=== PATIENT | female | born 1965 | race Caucasian/White ===

== ENCOUNTER → 2017-05-29 | Outpatient (CLI) | payer BC ==
--- NOTE | 2017-05-29 11:40 | XR ---
Cervical spine HISTORY: Radiculopathy, neck pain radiating to right side, M 54.12 5 views of the cervical spine No comparisons There is reversal the normal cervical lordosis. Cervical vertebral bodies show preserved height, alig nment, and bone mineralization. Disc spaces and prevertebral soft tissues are normal. Spondylosis pre sent at C7, some mild loss of disc height present at C5-6. No significant foraminal encroachment. IMPRESSION: Mild degenerative disc disease. Loss of lordosis may be due to muscle spasm. Consider cer vical MRI.
== END | disposition home or self-care (01) ==
LOC: RADXRMAIN 10:55
PROVIDERS: ATTEND Family Medicine
DX: M50.122 Cervical disc disorder at C5-C6 level with radiculopathy (principal)
CPT/HCPCS: 72050

== ENCOUNTER → 2018-08-07 | Outpatient (CLI) | payer BC ==
--- NOTE | 2018-08-07 13:24 | P.STRESS ---
- Stress Test Note Stress Test Results/Findings: Exam Performed: stress test Exam Date: 08/07/18 Reason for Exam: CHEST PAIN Height: 5 ft 2 in Weight: 78.018 kg Protocol: ADE Stage: 3 Duration of Exercise: 9:00 Resting Heart Rate: 77 Resting Blood Pressure: 116/64 Maximum Achieved Heart Rate: 124 Maximum Achieved Blood Pressure: 209/70 85% PMHR: 143 100% PMHR: 168 METS: 7.4 Technologist Comment: Stress Test Results/Findings: This is a 52-year-old female with history of diabetes. Family history of ischemic heart disease being evaluated for for symptoms of upper chest pain and shortness of breath. Stress data: Baseline EKG showed sinus rhythm with normal NC interval and QRS duration. Patient awoke on the Ade protocol for about 9 minutes achieving a maximal to the 124 with blood pressure of 209/70. EKGs taken during and after exercise showed mild J-point depression with upsloping ST segments in the inferolateral leads, which resolved quickly in the post exercise period. Patient complained him back chest pain or shortness of breath. New Final impression: #1. Negative stress test #2 would excise capacity #3. Patient complained of some chest pain and shortness of breath and associated with any significant EKG of mollities. #4. No arrhythmias detected
--- NOTE | 2018-08-08 16:03 | EST ---
Stress Test Results/Findings: Exam Performed: stress test Exam Date: 08/07/18 Reason for Exam: CHEST PAIN Height: 5 ft 2 in Weight: 78.018 kg Protocol: ADE Stage: 3 Duration of Exercise: 9:00 Resting Heart Rate: 77 Resting Blood Pressure: 116/64 Maximum Achieved Heart Rate: 124 Maximum Achieved Blood Pressure: 209/70 85% PMHR: 143 100% PMHR: 168 METS: 7.4 Technologist Comment: Stress Test Results/Findings: This is a 52-year-old female with history of diabetes. Family history of ischemic heart disease being evaluated for for symptoms of upper chest pain and shortness of breath. Stress data: Baseline EKG showed sinus rhythm with normal CT interval and QRS duration. Patient awoke on the Ade protocol for about 9 minutes achieving a maximal to the 124 with blood pressure of 209/70. EKGs taken during and after exercise showed mild J-point depression with upsloping ST segments in the inferolateral leads, which resolved quickly in the post exercise period. Patient complained him back chest pain or shortness of breath. New Final impression: #1. Negative stress test #2 would excise capacity #3. Patient complained of some chest pain and shortness of breath and associated with any significant EKG of mollities. #4. No arrhythmias detected MTDD
== END | disposition home or self-care (01) ==
LOC: RADNMMAIN 08:43
PROVIDERS: ATTEND Family Medicine
DX: R07.89 Other chest pain (principal); R06.02 Shortness of breath; R94.31 Abnormal electrocardiogram [ECG] [EKG]
CPT/HCPCS: 93017

== ENCOUNTER → 2018-12-09 | Outpatient (CLI) | payer BC ==
--- NOTE | 2018-12-09 10:58 | XR ---
EXAM TYPE: LUMBAR SPINE X RAY SERIES COMPARISON: NONE HISTORY: Low back pain TECHNIQUE: 4 views are submitted. FINDINGS: Alignment is anatomic. The pedicles are intact. The transverse processes are intact. There is no s pondylolysis or spondylolisthesis. Vascular calcifications are seen enters hypertrophic spurring ant eriorly. Multilevel facet arthropathy. IMPRESSION: 1. Multilevel facet arthropathy correlate with MRI as clinically warranted..
--- NOTE | 2018-12-09 11:40 | XR ---
EXAMINATION TYPE: XR shoulder complete RT DATE OF EXAM: 12/09/2018 COMPARISON: NONE HISTORY: Pain TECHNIQUE: Three views are submitted. FINDINGS: The osseous structures are intact. There is no acute fracture or dislocation. Arthropathy of the AC joint. IMPRESSION: 1. AC joint arthropathy if there is concern for rotator cuff injury correlate with MRI.
== END ==
LOC: RADXRMAIN 10:25
PROVIDERS: ATTEND Family Medicine
DX: M46.96 Unspecified inflammatory spondylopathy, lumbar region (principal); M19.011 Primary osteoarthritis, right shoulder
CPT/HCPCS: 72100

== ENCOUNTER 2019-04-30 13:42 | Emergency (ER) | payer BC ==
[2019-04-30] MEDS ORDERED: SODIUM CHLORIDE 0.9% 1,000 ML IV STA (15:32)
[2019-04-30 15:56] LABS: Basophils % (A) 0 %; Eosinophils # (A) 0.2 k/uL (0-0.7); Eosinophils % (A) 2 %; HCT 39.9 % (34.0-46.0); HGB 13.2 gm/dL (11.4-16.0); Lymphocytes # (A) 3.3 k/uL (1.0-4.8); Lymphocytes % (A) 32 %; MCH 28.3 pg (25.0-35.0); MCV 85.8 fL (80.0-100.0); Mean Platelet Volume 8.4; Monocytes # (A) 0.5 k/uL (0-1.0); Monocytes % (A) 4 %; Neutrophils # (A) 6.3 k/uL (1.3-7.7); Neutrophils % (A) 60 %; Platelet Count 251 k/uL (150-450); RBC 4.65 m/uL (3.80-5.40); RDW 13.3 % (11.5-15.5); WBC 10.4 k/uL (3.8-10.6)
[2019-04-30 16:06] LABS: ALT 27 U/L (9-52); AST 24 U/L (14-36); African American GFR (CKD) >90 (>60 ml/min/1.73 sqM); Albumin 3.8 g/dL (3.5-5.0); Alkaline Phosphatase 117 U/L (38-126); Anion Gap 9 mmol/L; Blood Urea Nitrogen 12 mg/dL (7-17); Calcium 9.4 mg/dL (8.4-10.2); Carbon Dioxide 23 mmol/L (22-30); Chloride 103 mmol/L (98-107); Glucose 337 mg/dL (74-99); Potassium 4.4 mmol/L (3.5-5.1); Sodium 135 mmol/L (137-145); Total Bilirubin 0.4 mg/dL (0.2-1.3); Total Protein 6.3 g/dL (6.3-8.2)
[2019-04-30 16:24] LABS: Amorphous Sediment,Urine Rare /hpf; Appearance,Urine Clear (Clear); Bacteria,Urine Rare /hpf; Bilirubin,Urine Negative (Negative); Blood,Urine Negative (Negative); Color,Urine Yellow; Glucose,Urine (UA) 4+ (Negative); Ketones,Urine Negative (Negative); Leukocyte Esterase,Urine Trace (Negative); Mucus,Urine Rare /hpf; Nitrite,Urine Negative (Negative); PH, Urine 5.5 (5.0-8.0); Protein,Urine Negative (Negative); RBC,Urine 1 /hpf (0-5); Squamous Epithelial Cell,Urine 4 /hpf (0-4); Urobilinogen,Urine <2.0 mg/dL (<2.0)
[2019-04-30 16:47] VITALS: RESP 16
--- NOTE | 2019-04-30 16:50 | ED ---
General Adult HPI - General Chief complaint: Recheck/Abnormal Lab/Rx Stated complaint: High Sugar >400 Time Seen by Provider: 04/30/19 15:09 Source: patient Mode of arrival: ambulatory Limitations: no limitations - History of Present Illness Initial comments: Patient is a 53-year-old female presenting to the emergency Department with complaints of high blood sugar x 1 week. Patient states she has been unable to afford her long acting insulin toujeo for a few months now. States she's been trying to control her sugar with her short acting insulin. Patient works at night and has been falling asleep at work and not having much of an appetite. Patient denies nausea, vomiting, abdominal pain. Patient has no other complaints at this time. - Related Data Home Medications Medication Instructions Recorded Confirmed Aspirin EC [Ecotrin Low Dose] 81 mg PO DAILY 04/30/19 04/30/19 Cholecalciferol [Vitamin D3 (25 1,000 unit PO DAILY 04/30/19 04/30/19 Mcg = 1000 Iu)] FLUoxetine HCL [PROzac] 10 mg PO DAILY 04/30/19 04/30/19 FLUoxetine HCL [PROzac] 40 mg PO DAILY 04/30/19 04/30/19 Insulin Glargine,Hum.rec.anlog 1 dose SQ DIRECTED 04/30/19 04/30/19 [Toujeo Solostar] Insulin Lispro [humaLOG Kwikpen] See Protocol SQ AC-TID 04/30/19 04/30/19 Loratadine [Claritin] 10 mg PO DAILY 04/30/19 04/30/19 Magnesium Gluconate [Magonate] 500 mg PO DAILY 04/30/19 04/30/19 Multivitamins, Thera [Multivitamin 1 tab PO DAILY 04/30/19 04/30/19 (formulary)] Omeprazole 20 mg PO DAILY 04/30/19 04/30/19 busPIRone HCL [Buspar] 7.5 mg PO BID 04/30/19 04/30/19 Allergies Allergy/AdvReac Type Severity Reaction Status Date / Time No Known Allergies Allergy Verified 04/30/19 16:07 Review of Systems ROS Statement: Those systems with pertinent positive or pertinent negative responses have been documented in the HPI. ROS Other: All systems not noted in ROS Statement are negative. Past Medical History Past Medical History: Diabetes Mellitus, Hyperlipidemia History of Any Multi-Drug Resistant Organisms: None Reported Past Surgical History: Section, Cholecystectomy, Hysterectomy Additional Past Surgical History / Comment(s): ectopic Past Psychological History: Anxiety, Depression Smoking Status: Current every day smoker Past Alcohol Use History: None Reported Past Drug Use History: None Reported - Past Family History Father Family Medical History: COPD, Diabetes Mellitus, Renal Disease (SLE) Mother Family Medical History: Cancer (:), Diabetes Mellitus Brother(s) Family Medical History: Hypertension Sister(s) Family Medical History: Hypertension Daughter(s) Family Medical History: No Reported History Son(s) Family Medical History: Asthma General Exam - General Exam Comments Initial Comments: GENERAL: Well-appearing, well-nourished and in no acute distress. HEAD: Atraumatic, normocephalic. EYES: Pupils equal round and reactive to light, extraocular movements intact, sclera anicteric, conjunctiva are normal. ENT: TMs normal, nares patent, oropharynx clear without exudates. Moist mucous membranes. NECK: Normal range of motion, supple without lymphadenopathy or JVD. LUNGS: Breath sounds clear to auscultation bilaterally and equal. No wheezes ra les or rhonchi. HEART: Regular rate and rhythm without murmurs, rubs or gallops. ABDOMEN: Soft, nontender, normoactive bowel sounds. No guarding, no rebound. No masses appreciated. : Deferred EXTREMITIES: Normal range of motion, no pitting or edema. No clubbing or cyanosis. NEUROLOGICAL: Cranial nerves II through XII grossly intact. Normal speech, normal gait. PSYCH: Normal mood, normal affect. SKIN: Warm, Dry, normal turgor, no rashes or lesions noted. Limitations: no limitations Course Vital Signs 04/30/19 04/30/19 13:43 16:46 Temperature 98.1 F 98.8 F Pulse Rate 87 68 Respiratory 18 16 Rate Blood Pressure 171/81 144/74 O2 Sat by Pulse 98 97 Oximetry Medical Decision Making - Medical Decision Making Patient is a 53-year-old female complaining of high glucose levels for the last week. Patient states she has been unable to afford her long-acting insulin. Patient reports falling asleep at work as she works nights. No other complaints at this time. Exam is normal. CBC, CMP, UA are within normal limits except for glucose of 337 and 4+ glucose in the urine. Patient was given fluids and insulin. Patient was counseled on the importance of long-acting insulin. Patient states she needs to find a new PCP. Patient was given a referral for new endocrine and will follow-up soon. Case is discussed with Dr. Buchanan. Return parameters were discussed. - Lab Data Result diagrams: 04/30/19 15:40 04/30/19 15:40 Lab Results 04/30/19 04/30/19 04/30/19 Range/Units 15:40 15:40 16:00 WBC 10.4 (3.8-10.6) k/uL RBC 4.65 (3.80-5.40) m/uL Hgb 13.2 (11.4-16.0) gm/dL Hct 39.9 (34.0-46.0) % MCV 85.8 (80.0-100.0) fL MCH 28.3 (25.0-35.0) pg MCHC 33.0 (31.0-37.0) g/dL RDW 13.3 (11.5-15.5) % Plt Count 251 (150-450) k/uL Neutrophils % 60 % Lymphocytes % 32 % Monocytes % 4 % Eosinophils % 2 % Basophils % 0 % Neutrophils # 6.3 (1.3-7.7) k/uL Lymphocytes # 3.3 (1.0-4.8) k/uL Monocytes # 0.5 (0-1.0) k/uL Eosinophils # 0.2 (0-0.7) k/uL Basophils # 0.0 (0-0.2) k/uL Sodium 135 L (137-145) mmol/L Potassium 4.4 (3.5-5.1) mmol/L Chloride 103 (98-107) mmol/L Carbon Dioxide 23 (22-30) mmol/L Anion Gap 9 mmol/L BUN 12 (7-17) mg/dL Creatinine 0.56 (0.52-1.04) mg/dL Est GFR (CKD-EPI)AfAm >90 (>60 ml/min/1.73 sqM) Est GFR (CKD-EPI)NonAf >90 (>60 ml/min/1.73 sqM) Glucose 337 H (74-99) mg/dL Calcium 9.4 (8.4-10.2) mg/dL Total Bilirubin 0.4 (0.2-1.3) mg/dL AST 24 (14-36) U/L ALT 27 (9-52) U/L Alkaline Phosphatase 117 (38-126) U/L Total Protein 6.3 (6.3-8.2) g/dL Albumin 3.8 (3.5-5.0) g/dL Urine Color Yellow Urine Appearance Clear (Clear) Urine pH 5.5 (5.0-8.0) Ur Specific Ringle 1.030 (1.001-1.035) Urine Protein Negative (Negative) Urine Glucose (UA) 4+ H (Negative) Urine Ketones Negative (Negative) Urine Blood Negative (Negative) Urine Nitrite Negative (Negative) Urine Bilirubin Negative (Negative) Urine Urobilinogen <2.0 (<2.0) mg/dL Ur Leukocyte Esterase Trace H (Negative) Urine RBC 1 (0-5) /hpf Urine WBC 1 (0-5) /hpf Ur Squamous Epith Cells 4 (0-4) /hpf Amorphous Sediment Rare H (None) /hpf Urine Bacteria Rare H (None) /hpf Urine Mucus Rare H (None) /hpf Disposition Clinical Impression: Hyperglycemia due to type 2 diabetes mellitus Disposition: HOME SELF-CARE Condition: Stable Instructions (If sedation given, give patient instructions): Diabetic Hyperglycemia (ED) Additional Instructions: Please return to the Emergency Department if symptoms worsen or any other concerns. Follow-up with endocrine in the next one to 3 days. Is patient prescribed a controlled substance at d/c from ED?: No Referrals: Cricket Hayes DO [Primary Care Provider] - 1-2 days Diane Hernandez MD [STAFF PHYSICIAN] - 1-2 days
[2019-04-30] MEDS ORDERED: INSULIN DETEMIR (LEVEMIR) 100 UNIT/ML SYR SQ STA (18:02)
[2019-04-30 18:30] VITALS: BP 138/74; PULSE 67; TEMP 97.5
== END 2019-04-30 18:35 | disposition home or self-care (01) ==
LOC: EC 13:42
DX: E11.65 Type 2 diabetes mellitus with hyperglycemia (principal); F32.9 Major depressive disorder, single episode, unspecified; F41.9 Anxiety disorder, unspecified; F17.200 Nicotine dependence, unspecified, uncomplicated; Z79.4 Long term (current) use of insulin; Z79.82 Long term (current) use of aspirin; Z79.899 Other long term (current) drug therapy; Z83.3 Family history of diabetes mellitus
CPT/HCPCS: 36415; 80053; 81001; 85025; 96360; 96361; 99284

== ENCOUNTER → 2019-05-05 | Outpatient (CLI) | payer BC ==
[2019-05-05 16:43] LABS: African American GFR (CKD) 84.6 (60.0-200.0); Albumin 3.9 g/dL (3.80-4.90); Albumin/Globulin Ratio 1.77 (1.60-3.17); Anion Gap 9.5 mmol/L (4.00-12.00); BUN/Creat Ratio 12.22 Ratio (12.00-20.00); Calcium 9.1 mg/dL (8.7-10.3); Carbon Dioxide 24.5 mmol/L (21.6-31.8); Globulin 2.2 g/dL (1.6-3.3); Potassium 4.4 mmol/L (3.5-5.5); Total Bilirubin 0.2 mg/dL (0.3-1.2); Total Protein 6.1 g/dL (6.2-8.2)
== END | disposition home or self-care (01) ==
LOC: LABWHC1 10:51
PROVIDERS: ATTEND Internal Medicine Endocrinology, Diabetes & Metabolism
DX: E11.65 Type 2 diabetes mellitus with hyperglycemia (principal)
CPT/HCPCS: 36415; 80053; 84681

== ENCOUNTER → 2019-10-29 | Outpatient (CLI) | payer BC ==
--- NOTE | 2019-11-02 08:52 | MM ---
Reason for exam: screening (asymptomatic). Last mammogram was performed 5 years and 7 months ago. History: Patient has history of other cancer at age 30. Family history of breast cancer in cousin at age 40. Benign core biopsy of the left breast. Physical Findings: A clinical breast exam by your physician is recommended on an annual basis and results should be correlated with mammographic findings. MG Screening Mammo w CAD Bilateral CC and MLO view(s) were taken. Prior study comparison: April 06, 2014, bilateral MG screening mammo w CAD. There are scattered fibroglandular densities. Focal asymmetry in the right breast. No significant changes when compared with prior studies. ASSESSMENT: Benign, BI-RAD 2 RECOMMENDATION: Routine screening mammogram of both breasts in 1 year.
== END | disposition home or self-care (01) ==
LOC: RADMAMWWP 13:24
PROVIDERS: ATTEND Family Medicine
DX: Z12.31 Encounter for screening mammogram for malignant neoplasm of breast (principal)
CPT/HCPCS: 77067

== ENCOUNTER → 2020-04-22 | Outpatient (CLI) | payer BC | END | disposition home or self-care (01) | LOC: LABWHC1 16:26 | PROVIDERS: ATTEND Surgery Plastic and Reconstructive Surgery | DX: Z53.9 Procedure and treatment not carried out, unspecified reason (principal) ==

== ENCOUNTER 2020-05-13 14:48 | Day surgery (SDC) | payer BC ==
[2020-05-12 10:03] VITALS: BMI 30.4
[~2020-05-13 14:48] MED LIST: DEXAMETHASONE SOD PHOSPHATE 10 MG/ML 1 ML VIAL IV ONE; HYDROmorphone 0.5 MG/0.5 ML SYRINGE IVP PRN; LIDOCAINE 1% (10MG/ML) FOR IV START INTRADERMA PRN; ONDANSETRON 4 MG/2 ML VIAL IVP ONE; ONDANSETRON 4 MG/2 ML VIAL IVP PRN
[2020-05-13 15:06] VITALS: TEMP 96.2
[2020-05-13] MEDS: LACTATED RINGERS 1,000 ML IV SCH ×3 (15:12→15:34)
[2020-05-13 15:13] LABS: Glucose,Whole Blood 185 mg/dL (75-99)
[2020-05-13] MEDS ORDERED: ONDANSETRON 4 MG/2 ML VIAL ONE (15:15)
[2020-05-13] MEDS ORDERED: SCOPOLAMINE 1.5MG/72HR PATCH TRANSDERM ONE (15:19)
[2020-05-13] MEDS ORDERED: fentaNYL (PF) 50 MCG/ML 2 ML AMP ONE (15:34)
[2020-05-13] MEDS ORDERED: SUCCINYLCHOLINE CHLORIDE 100 MG/5 ML SYR IV ONE (15:34)
[2020-05-13] MEDS ORDERED: PROPOFOL 10 MG/ML 20 ML VIAL IV ONE (15:34)
[2020-05-13] MEDS ORDERED: MIDAZOLAM 2 MG/2 ML VIAL ONE (15:34)
[2020-05-13] MEDS ORDERED: LIDOCAINE 1%-EPI 1:100,000 20 ML VIAL SQ ONE ×2 (16:32)
[2020-05-13 17:10] LABS: Glucose,Whole Blood 233 mg/dL (75-99)
[2020-05-13] MEDS ORDERED: LACTATED RINGERS 1,000 ML IV ONE (17:11)
[2020-05-13] MEDS ORDERED: INSULIN ASPART (NovoLOG) 100 UNIT/ML VIAL SQ ONE (17:18)
[2020-05-13 17:29] VITALS: RESP 18
[2020-05-13 17:44] VITALS: BP 132/78; PULSE 67
--- NOTE | 2020-05-15 10:49 | P.OP ---
Date of Procedure: 05/13/20 Preoperative Diagnosis: 1. Right carpal tunnel syndrome 2. Right middle trigger finger Postoperative Diagnosis: 1. Right carpal tunnel syndrome 2. Right middle trigger finger Procedure(s) Performed: 1. Right endoscopic carpal tunnel release 2. Right middle trigger finger release Anesthesia: MAYELAA, other Surgeon: Tomas Jeronimo Estimated Blood Loss (ml): 5 Condition: stable Disposition: PACU Indications for Procedure: The patient is a 54-year-old female who was diagnosed with right carpal tunnel syndrome and a right middle trigger finger. Treatment options (and associated risks and benefits) were discussed in the office; the patient elected to undergo surgical release. In preop, additional questions were addressed and the patient wished to proceed with surgery. Consent forms were signed. The operative sites were confirmed and marked in preop. Description of Procedure: The patient was positioned supine with the right arm on a hand table. A tourniquet was applied. Anesthesia was administered uneventfully. The right upper extremity was then prepped and draped in standard, sterile fashion. A time-out was performed, confirming patient identifiers, the operative side, sites and procedures to be performed: all team members expressed agreement. The limb was exsanguinated with an Esmarch and the tourniquet was inflated. Loupe magnification was used throughout the case for optimum visualization. The trigger finger was approached first. A longitudinal incision was marked over the middle finger A-1 arian, extending obliquely along the distal palmar crease in a hockey-stick fashion. Blunt, spreading dissection proceeded down to the flexor sheath, taking care to protect the adjacent neurovascular bundles. The subcutaneous tissues along the flexor sheath were dense and adherent. These were bluntly divided. The A-1 arian was identified and sharply incised longitudinally. The sheath appeared stenotic distally and the proximal portion of the A2 arian was released (<25%). Synovial adhesions proximal and distal to the arian were released with scissors. The flexor tendons were gently elevated out of the wound with Ragnell retractors an audible and palpable release of proximal adhesions in the palm was noted, followed by full passive flexion of the digit. The tendons were released and allowed to retract back to their normal anatomic positions. Passive motion of the digit demonstrated smooth tendon gliding without appreciable catching, triggering or focal restriction. The wound was covered and attention was turned to the carpal tunnel. A 1.5 cm transverse incision was marked proximal to the wrist flexion crease, in line with the radial border of the ring finger. The skin was sharply incised and the subcutaneous tissues were bluntly spread. The volar carpal fascia was identified and sharply incised in line with the path of the nerve. The median nerve was visualized below. A synovial elevator was inserted and used to release adhesions on the underside of the transverse carpal ligament. The washboard effect was palpable. A dilator was inserted to sound and enlarge the carpal tunnel. The hamate hook was palpable ulnarly. The introitus to the tunnel was remarkably narrow. The small side-specific guide and camera were selected, but even this felt somewhat snug when inserted. The transverse carpal ligament was clearly visualized above. The distal edge of the ligament was identified and palpated with a probe. A rasp was used to clear the remaining synovial adhesions. The endoscopic blade was inserted and the distal half of the ligament was sharply incised. Residual distal transverse fibers were released and then the proximal portion of the ligament was divided. Upon release, the ligament leaflets sprang apart widely, each no longer visible within the field of view. The camera and guide were removed. Proximal to the incision, the volar carpal/antebrachial fascia was noted to be fairly thick, causing additional compression, and was released with scissors under direct visualization. The tourniquet was released after 16 minutes at 150 mmHg. There was a moderate amount of diffuse slow bleeding from numerous sites (even the edges of the A-1 arian); manual pressure on the wounds afforded acceptable hemostasis. The wounds were thoroughly irrigated with normal saline. The incisions were closed with interrupted 4-0 Nylon sutures. Local anesthetic with epinephrine was in jected for adjunct postoperative pain control and hemostasis. A soft, sterile dressing was applied. All sponge, needle and instrument counts were correct at the end of the case. The patient tolerated the procedure well and was transferred to recovery in stable condition.
== END 2020-05-13 17:56 | disposition home or self-care (01) ==
LOC: OR 14:48
PROVIDERS: ATTEND Orthopaedic Surgery
DX: G56.03 Carpal tunnel syndrome, bilateral upper limbs (principal); M65.331 Trigger finger, right middle finger; E78.5 Hyperlipidemia, unspecified; F32.9 Major depressive disorder, single episode, unspecified; E11.9 Type 2 diabetes mellitus without complications; K21.9 Gastro-esophageal reflux disease without esophagitis; Z87.11 Personal history of peptic ulcer disease; M19.90 Unspecified osteoarthritis, unspecified site; G43.919 Migraine, unspecified, intractable, without status migrainosus; R45.0 Nervousness; R26.81 Unsteadiness on feet; Z90.49 Acquired absence of other specified parts of digestive tract; Z90.710 Acquired absence of both cervix and uterus; Z98.890 Other specified postprocedural states; Z83.3 Family history of diabetes mellitus; Z97.3 Presence of spectacles and contact lenses; Z82.49 Family history of ischemic heart disease and other diseases of the circulatory system; F17.210 Nicotine dependence, cigarettes, uncomplicated; Z97.2 Presence of dental prosthetic device (complete) (partial); Z79.82 Long term (current) use of aspirin; Z79.899 Other long term (current) drug therapy; Z79.4 Long term (current) use of insulin
CPT/HCPCS: 29848; 26055; J2250; J1100; J2405; J3010; J0330; J2704

== ENCOUNTER → 2022-10-12 | Outpatient (CLI) | payer BC ==
[2022-10-12 23:45] LABS: African American GFR (CKD) 111.5 (60.0-200.0); Albumin 3.8 g/dL (3.8-4.9); Albumin/Globulin Ratio 1.81 (1.60-3.17); Anion Gap 10.6 mmol/L (10.00-18.00); BUN/Creat Ratio 10.86 Ratio (12.00-20.00); Blood Urea Nitrogen 7.6 mg/dL (9.0-27.0); Calcium 9.1 mg/dL (8.7-10.3); Carbon Dioxide 24.4 mmol/L (20.0-27.5); Globulin 2.1 g/dL (1.6-3.3); Non-African American GFR(CKD) 96.2 (60.0-200.0); Potassium 4.3 mmol/L (3.5-5.5); Total Bilirubin 0.3 mg/dL (0.30-1.20); Total Protein 5.9 g/dL (6.2-8.2)
[2022-10-12 23:50] LABS: C-Peptide 1.73 ng/mL (0.81-3.85)
== END | disposition home or self-care (01) ==
LOC: LABWHC1 13:32
PROVIDERS: ATTEND Internal Medicine Endocrinology, Diabetes & Metabolism
DX: E11.65 Type 2 diabetes mellitus with hyperglycemia (principal)
CPT/HCPCS: 36415; 80053; 84681

== ENCOUNTER → 2023-10-01 | Outpatient (CLI) | payer BC ==
--- NOTE | 2023-10-02 20:06 | MM ---
Reason for Exam: Screening (asymptomatic). Last mammogram was performed 3 year(s) and 11 month(s) ago. Patient History: Menarche at age 13. First Full-Term at age 19. Left ovary removed at age 48. Right ovary removed at age 48. Hysterectomy at age 48. Postmenopausal. Other cancer, age 30. Benign Core Biopsy on the left side. Maternal cousin had breast cancer, age 40. Risk Values: Shanice 5 year model risk: 1.1%. NCI Lifetime model risk: 6.6%. Prior Study Comparison: 04/06/2014 Bilateral Screening Mammogram, [facility]. 10/29/2019 Bilateral Screening Mammogram, [facility]. Tissue Density: There are scattered fibroglandular densities. Findings: Analyzed By CAD. Unchanged global asymmetry right upper outer quadrant. Benign bilateral dermal calcifications medially. There is no suspicious group of microcalcifications or new suspicious mass in either breast. Overall Assessment: Benign, BI-RAD 2 Management: Screening Mammogram of both breasts in 1 year. . Patient should continue monthly self-breast exams. A clinical breast exam by your physician is recommended on an annual basis. This exam should not preclude additional follow-up of suspicious palpable abnormalities. Note on Shanice scores and lifetime risk: 1. A Shanice score greater than 3% is considered moderate risk. If this is the case, consider specialist referral to assess eligibility for a risk reducing agent. 2. If overall lifetime risk for the development of breast cancer is 20% or higher, the patient may qualify for future screening with alternating mammogram and breast MRI. Electronically signed and approved by: Juan Jose Bai M.D. Radiologist
== END | disposition home or self-care (01) ==
LOC: RADMAMWWP 12:45
PROVIDERS: ATTEND Family Medicine
DX: Z12.31 Encounter for screening mammogram for malignant neoplasm of breast (principal); Z78.0 Asymptomatic menopausal state; Z80.3 Family history of malignant neoplasm of breast
CPT/HCPCS: 77063; 77067

== ENCOUNTER → 2024-07-18 | Outpatient (CLI) | payer BC ==
[2024-07-18 13:48] LABS: ALT 15 U/L (8-44); AST 14 U/L (13-35); Albumin/Globulin Ratio 1.82 Ratio (1.60-3.17); Alkaline Phosphatase 113 U/L (41-126); BUN/Creat Ratio 12.82 Ratio (12.00-20.00); Blood Urea Nitrogen 14.1 mg/dL (9.0-27.0); Calcium 9.3 mg/dL (8.7-10.3); Carbon Dioxide 24.9 mmol/L (21.6-31.8); Chloride 102 mmol/L (96-109); Chol/HDL Ratio 4.89 Ratio; Globulin 2.2 g/dL (1.6-3.3); Glucose 167 mg/dL (70-110); Potassium 4.3 mmol/L (3.5-5.5); Sodium 138 mmol/L (135-145); Total Bilirubin 0.3 mg/dL (0.3-1.2); Total Protein 6.2 g/dL (6.2-8.2)
== END | disposition home or self-care (01) ==
LOC: LABWHC1 08:38
PROVIDERS: ATTEND Internal Medicine Endocrinology, Diabetes & Metabolism
DX: E11.65 Type 2 diabetes mellitus with hyperglycemia (principal)
CPT/HCPCS: 36415; 80053; 80061; 83036; 83721; 84443

== ENCOUNTER → 2024-09-29 | Outpatient (CLI) | payer BC ==
--- NOTE | 2024-09-29 10:36 | CTL ---
EXAMINATION TYPE: CT Low Dose Lung DATE OF EXAM ORDERED: 09/29/2024 COMPARISON: Chest radiograph 09/29/2015 CLINICAL INDICATION: Female, 59 years old with history of Z12.2 ENCNTR SCREEN FOR MALIGNANT NEOPLASM OF RESP; [facility], Encounter for malignant neoplasm AND Nicotine dependence, cigarettes, uncomplicated (cu rrent smoker), Lung cancer screening, History of Smoking/tobacco use. TECHNIQUE: Low dose computed tomography scan was performed through the chest at 1 mm thick sections a nd reconstructed images in multiple planes at 1 mm and [address] DLP: 127.[address] CTDI: 3.60 mGy Automated exposure control for dose reduction was used. CT DIAGNOSTIC QUALITY: Satisfactory FINDINGS: Nodules: Right middle lobe 2.7 mm calcified granuloma. Anterior right lower lobe peripheral 3.6 mm pulmonary nodule (series 6, image 36). Right lower lobe 1.8 mm pulmonary nodule (series 6, image 43). Posterior left upper lobe 5.6 mm groundglass pulmonary nodule (series 6, image 15). LUNGS: COPD: Severity: None Fibrosis: Severity: None Lymph nodes: None Other findings: None RIGHT PLEURAL SPACE: Effusion: None Calcification: None Thickening: None Pneumothorax: None LEFT PLEURAL SPACE: Effusion: None Calcification: None Thickening: None Pneumothorax: None HEART: Heart Size: Normal Coronary Calcification: Small Pericardial Effusion: Trace OTHER FINDINGS: Upper abdomen: Gallbladder is surgically absent. Bony thorax: Sclerotic focus within the left lateral seventh rib which may represent a benign bone is land. No erosive changes. Supraclavicular region: Right thyroid lobe 1.3 cm hypodense nodule. Other: None IMPRESSION: Few pulmonary nodules measuring less than [address] LUNG RAD AND CT CHEST RECOMMENDATION: Lung-Rad 2 Benign Appearance or Behavior: Continue annual sc reening with LDCT in 12 months. S Modifier (other clinically significant findings): None [facility], , 09/29/2024 10:34 AM
== END | disposition home or self-care (01) ==
LOC: RADCTMAIN 09:45
PROVIDERS: ATTEND Family Medicine
DX: Z12.2 Encounter for screening for malignant neoplasm of respiratory organs (principal); F17.210 Nicotine dependence, cigarettes, uncomplicated; R91.8 Other nonspecific abnormal finding of lung field
CPT/HCPCS: 71271

== ENCOUNTER → 2025-01-26 | Outpatient (CLI) | payer BC ==
--- NOTE | 2025-01-26 10:25 | CT ---
EXAMINATION TYPE: CT brain wo con DATE OF EXAM: 01/26/2025 10:19 AM COMPARISON: None. CLINICAL INDICATION: Female, 59 years old with history of I10 ESSENTIAL (PRIMARY) HYPERTENSION, TECHNIQUE: Brain: Axial CT images of the brain were obtained with coronal and sagittal reformats created and rev iewed. Contrast used: None. Oral contrast used: None. CT DLP: mGycm, Automated exposure control for dose reduction was used. FINDINGS: Brain: Extra-axial spaces: No abnormal extra-axial fluid collections. Ventricular system: Within normal limits Cerebral parenchyma: Remote injury to the left basal ganglia No acute intraparenchymal hemorrhage or mass effect. The haines-white junction is well differentiated. Cerebellum: Unremarkable. Mass effect: No evidence of midline shift. Intracranial vasculature: Atherosclerotic calcifications of the intracranial vessels. Soft tissues: Normal. Calvarium/osseous structures: No depressed skull fracture. Paranasal sinuses and mastoid air cells: Mild scattered paranasal sinus disease. Visualized orbits: Bilateral aphakia IMPRESSION: 1. No acute intracranial process. 2. Remote left basal ganglia injury. [facility], , 01/26/2025 10:23 AM
== END | disposition home or self-care (01) ==
LOC: RADCTMAIN 09:52
PROVIDERS: ATTEND Family Medicine
DX: I10 Essential (primary) hypertension (principal)
CPT/HCPCS: 70450

== ENCOUNTER → 2025-05-07 | Outpatient (CLI) | payer BC ==
[2025-05-07 10:53] LABS: African American GFR (CKD) 53 (>60 ml/min/1.73 sqM); Blood Urea Nitrogen 24 mg/dL (7-17); Non-African American GFR(CKD) 46 (>60 ml/min/1.73 sqM)
--- NOTE | 2025-05-07 12:21 | CT ---
EXAMINATION TYPE: CT abdomen pelvis w con DATE OF EXAM: 05/07/2025 11:58 AM COMPARISON: None CLINICAL INDICATION: Female, 59 years old with history of R10.12 LUQ PAIN; LUQ abdominal pain, hx of diabetes TECHNIQUE: Axial CT abdomen pelvis w con;Sagittal and coronal reformats were created on a separate w orkstation. Contrast used:80 ml mL of Isovue 300 with IV Contrast, (none if empty) Oral contrast used: with Oral Contrast (none if empty) CT DLP: 1351 mGycm, Automated exposure control for dose reduction was used. FINDINGS: LOWER CHEST: Unremarkable ABDOMEN LIVER: Unremarkable GALLBLADDER AND BILE DUCTS: Unremarkable. PANCREAS: Unremarkable. SPLEEN: r simple appearing splenic probable cyst versus hemangioma measuring 18 mm ADRENAL GLANDS: Unremarkable. KIDNEYS AND URETERS: No evidence of hydronephrosis or obstructing renal calculus. The ureters are unr emarkable. PELVIS BLADDER: No evidence for wall thickening or mass given limitations of exam. REPRODUCTIVE: Prostate is enlarged in size measuring ??cm in transverse dimension. ABDOMEN & PELVIS STOMACH AND BOWEL: No evidence of bowel obstruction. There may be some mild inflammation around the s igmoid colon few diverticula are present. Scattered series 4 image 69. Colonic diverticula. Large sto ol burden in the colon. The appendix is normal. PERITONEUM/RETROPERITONEUM: No evidence of pneumoperitoneum or free fluid. VASCULATURE: No evidence of aortic aneurysm. MUSCULOSKELETAL: No acute osseous abnormalities LYMPH NODES: No gross evidence for lymphadenopathy. SOFT TISSUE/ABDOMINAL WALL: Bilateral fat-containing inguinal hernias. IMPRESSION: 1. No definitive left upper quadrant acute process. No evidence for obstructive uropathy or renal ca lculus. No rib fractures are identified. 2. Mild inflammation around the sigmoid colon correlate for mild colitis. 3. Scattered colonic diverticula. 4. Large stool burden in the colon. 5. Appendix is normal. 6. Bilateral fat-containing inguinal hernias. [facility], , 05/07/2025 12:18 PM
== END | disposition home or self-care (01) ==
LOC: RADCTMAIN 09:57
PROVIDERS: ATTEND Emergency Medicine
DX: N18.31 Chronic kidney disease, stage 3a (principal); K40.20 Bilateral inguinal hernia, without obstruction or gangrene, not specified as recurrent; K57.30 Diverticulosis of large intestine without perforation or abscess without bleeding
CPT/HCPCS: 82565; 84520; 74177; 36415; Q9967

== ENCOUNTER → 2025-06-08 | Outpatient (CLI) | payer BC ==
[2025-06-08 15:37] LABS: ALT 24 U/L (8-44); AST 19 U/L (13-35); Albumin 3.8 g/dL (3.8-4.9); Albumin/Globulin Ratio 1.65 Ratio (1.60-3.17); Alkaline Phosphatase 104 U/L (41-126); Anion Gap 10.40 mmol/L (4.00-12.00); BUN/Creat Ratio 19.92 Ratio (12.00-20.00); Blood Urea Nitrogen 25.9 mg/dL (9.0-27.0); Calcium 9.4 mg/dL (8.7-10.3); Carbon Dioxide 23.6 mmol/L (21.6-31.8); Chloride 105 mmol/L (96-109); Cholesterol 260.00 mg/dL (0.00-200.00); Globulin 2.3 g/dL (1.6-3.3); Glucose 186 mg/dL (70-110); HDL Cholesterol 52.50 mg/dL (40.00-60.00); LDL Cholesterol,Calculated 141.5 mg/dL (0.0-131.0); Potassium 5.2 mmol/L (3.5-5.5); Sodium 139 mmol/L (135-145); Total Protein 6.1 g/dL (6.2-8.2); Triglycerides 330.00 mg/dL (0.00-149.00); VLDL Calculation 66.00 mg/dL (5.00-40.00)
== END | disposition home or self-care (01) ==
LOC: LABWHC1 09:44
PROVIDERS: ATTEND Nurse Practitioner Gerontology
DX: E11.65 Type 2 diabetes mellitus with hyperglycemia (principal); Z79.4 Long term (current) use of insulin
CPT/HCPCS: 36415; 80053; 80061; 82043; 82570; 83036

== ENCOUNTER → 2025-06-15 | Day surgery (SDC) | payer BC ==
[2025-06-09 16:46] VITALS: BMI 30.8
[~2025-06-15] MED LIST changes: -DEXAMETHASONE SOD PHOSPHATE 10 MG/ML 1 ML VIAL IV ONE; -HYDROmorphone 0.5 MG/0.5 ML SYRINGE IVP PRN; -LIDOCAINE 1% (10MG/ML) FOR IV START INTRADERMA PRN; -ONDANSETRON 4 MG/2 ML VIAL IVP ONE; -ONDANSETRON 4 MG/2 ML VIAL IVP PRN; +PROPOFOL 10 MG/ML 20 ML VIAL IV ONE
[2025-06-15 08:09] VITALS: TEMP 97.7
[2025-06-15] MEDS: IV FLUID CONTINUATION 1,000 ML IV ONE (08:16)
[2025-06-15] MEDS: LACTATED RINGERS 1,000 ML IV SCH (08:16)
[2025-06-15 08:17] LABS: Glucose,Whole Blood 111 mg/dL (70-110)
--- NOTE | 2025-06-15 09:35 | P.PCN ---
Date of Procedure: 06/15/25 Procedure(s) Performed: BRIEF HISTORY: Patient is a 59-year-old pleasant white female scheduled for an elective colonoscopy as a part of evaluation of iron deficiency anemia and family history of colon cancer diagnosed in her father at age 62 PROCEDURE PERFORMED: Colonoscopy with biopsy and snare polypectomy. PREOPERATIVE DIAGNOSIS: Iron deficiency anemia and family history of colon cancer. IV sedation per Anesthesia. PROCEDURE: After informed consent was obtained, the patient, was brought into the endoscopy unit. IV sedation was administered by Anesthesia under continuous monitoring. Digital rectal examination was normal. Initially the Olympus CF-160 flexible video colonoscope was then inserted in the rectum, gradually advanced into the cecum without any difficulty. Careful examination was performed as the scope was gradually being withdrawn. Ileocecal valve and the appendiceal orifice were visualized and appeared normal. Prep was excellent. Mucosa of the cecum, ascending colon, appeared normal. The transverse colon there was a 4 mm sessile polyp removed by cold biopsy. Rest of the transverse colon, descending colon, appeared normal. The distal sigmoid colon at 20 cm from the anal verge there was a 1.2 cm broad-based polyp removed by hot snare polypectomy. Scattered left -sided diverticulosis seen. Sigmoid colon, and rectum appeared normal. Retroflexion was performed in the rectum and no lesions were seen. The patient tolerated the procedure well. IMPRESSION: 4 mm transverse colon polyp status post cold biopsy 1.2 cm distal sigmoid colon polyp status post hot snare polypectomy RECOMMENDATIONS: Findings of this examination were discussed with the patient as well as her family. She was advised to follow-up with the biopsy results. If the biopsy reveals adenoma she can have repeat colonoscopy in 3 years..
[2025-06-15 09:43] VITALS: RESP 16
[2025-06-15 09:47] LABS: Glucose,Whole Blood 106 mg/dL (70-110)
[2025-06-15 10:08] VITALS: BP 147/63; PULSE 70
== END ==
LOC: ORWHC2ENDO 07:36
PROVIDERS: ATTEND Internal Medicine Gastroenterology
DX: D12.3 Benign neoplasm of transverse colon (principal); D12.5 Benign neoplasm of sigmoid colon; D50.9 Iron deficiency anemia, unspecified; K57.30 Diverticulosis of large intestine without perforation or abscess without bleeding; K25.9 Gastric ulcer, unspecified as acute or chronic, without hemorrhage or perforation; E78.5 Hyperlipidemia, unspecified; E11.9 Type 2 diabetes mellitus without complications; I10 Essential (primary) hypertension; F41.9 Anxiety disorder, unspecified; F32.A Depression, unspecified; Z80.0 Family history of malignant neoplasm of digestive organs; Z79.4 Long term (current) use of insulin; Z79.02 Long term (current) use of antithrombotics/antiplatelets; Z79.82 Long term (current) use of aspirin; Z79.899 Other long term (current) drug therapy
CPT/HCPCS: 45380; 45385; J2704; 88305